=== PATIENT | male | born 1980 | race American Indian/Alaskan Native ===

== ENCOUNTER 2018-07-06 21:06 | Emergency (ER) | payer MEDICAID ==
[2018-07-06] MEDS ORDERED: GEODON PO SCH (22:00)
--- NOTE | 2018-07-07 11:08 | Emergency Department Report ---
Nicolette Doc - Documentation Documentation: Mr. Fields is a 37-year-old gentleman with history of paranoid schizophrenia. My colleague Dr. Candelaria evaluated Mr. Fields yesterday 07/06/2018. Due to symptoms of acute psychosis, Mr. Fields was placed on involuntary hold 1013 with appropriate precautions. Complete documentation can be found using [id number] Name: Gomez Layton. I have reviewed Dr. Candelaria H&P and labs upon presenation. I have completed 1013 form, I determined Mr. Fields is medically clear for psychiatric care according to presentation and workup. I did evaluate Mr. Fields. He currently does not have a medical condition which requires treatment and evaluation. CBC chemistry urine tox screen UA all within normal limits. Mr. Fields takes Risperdal 2 mg twice a day.
[2018-07-07 11:54] LABS: Basophils # (Auto) 0.1 K/mm3 (0.0-0.1); Basophils % (Auto) 2.1 % (0.0-1.8); Eosinophils # (Auto) 0.2 K/mm3 (0.0-0.4); Eosinophils % (Auto) 4.2 % (0.0-4.3); Hematocrit 44.6 % (35.5-45.6); Lymphocytes # (Auto) 1.4 K/mm3 (1.2-5.4); Lymphocytes % (Auto) 38.7 % (13.4-35.0); Mean Corpuscular HGB Conc 34 % (32-34); Mean Corpuscular Volume 90 fl (84-94); Monocytes # (Auto) 0.3 K/mm3 (0.0-0.8); Monocytes % (Auto) 7.7 % (0.0-7.3); Platelet Count 217 K/mm3 (140-440); Red Blood Count 4.93 M/mm3 (3.65-5.03); Red Cell Distribution Width 13.7 % (13.2-15.2)
[2018-07-07 12:07] LABS: Alanine Aminotransferase 16 units/L (7-56); Albumin 3.9 g/dL (3.9-5); BUN/Creatinine Ratio 7; Blood Urea Nitrogen 7 mg/dL (9-20); Calcium 9.2 mg/dL (8.4-10.2); Hemolysis Index 7
--- NOTE | 2018-07-07 13:42 | Consultation ---
History of Present Illness - Reason for Consult Consult date: 07/07/18 Reason for consult: Mental Health Evaluation Requesting physician: JAMILAH KIM - Chief Complaint Chief complaint: "I have triplets" - History of Present Psychiatric Illness 37 year-old AA male who presented to the ER for bizarre behavior. Initially the patient was answering to another name (Gomez Fields) when I first met him. The patient real name is Kodi Fields. Today the patient is calm, but tangent and disorganized during the assessment. He was asked several times why does he use different names and his answers were not logical. He started talking about having "triplets" or being a "triplet," something totally irrelevant to our conversation. He denies making any statements about wanting to set himself on fire when asked per the record. He denies SI/HI's and AVH's. At this time the patient is a poor historian. Medications and Allergies Allergies Allergy/AdvReac Type Severity Reaction Status Date / Time Penicillins Allergy Rash Verified 01/03/16 16:27 Home Medications Medication Instructions Recorded Confirmed Last Taken Type Benztropine [Cogentin] 1 mg PO BID #60 tablet 01/03/16 07/06/18 Unknown Rx Haloperidol [Haldol] 5 mg PO QHS #30 tablet 01/03/16 07/06/18 Unknown Rx risperiDONE [RisperDAL] 6 mg PO QHS #60 tablet 01/03/16 07/06/18 Unknown Rx traZODone [Desyrel] 100 mg PO QHS #30 tablet 01/03/16 07/06/18 Unknown Rx Active Meds: Active Medications Risperidone (Risperdal) 2 mg PO BID [facility] Past psychiatric history - Past Medical History Past Medical History: No medical history Past Surgical History: No surgical history - past Psychiatric treatment and history psychiatric treatment history: Several inpatient psy settings. Denies a fam psy hx. - Social History Social history: other ([facility]) Mental Status Exam - Vital signs Last Vital Signs Temp 98.2 F 07/07/18 07:58 Pulse 78 07/07/18 07:58 Resp 18 07/07/18 08:08 BP 100/71 07/07/18 07:58 Pulse Ox 100 07/07/18 07:58 - Exam Narrative exam: MSE: Appearance: calm, cooperative Behavior: regular eye contact Speech: regular rate with and tone Mood: "okay" Affect: constricted Thought Process:disorganized, loose associations Thought Content: denies SI/HI's and AVH's Motor Activity: sitting up in bed Cognition: A/O x3 Insight:poor Judgment: poor Results Result Diagrams: 07/07/18 11:32 07/07/18 11:32 Abnormal lab results 07/07/18 07/07/18 07/07/18 Range/Units 11:32 11:32 11:32 WBC 3.7 L (4.5-11.0) K/mm3 Lymph % (Auto) 38.7 H (13.4-35.0) % Reagan % (Auto) 7.7 H (0.0-7.3) % Baso % (Auto) 2.1 H (0.0-1.8) % Seg Neutrophils # 1.7 L (1.8-7.7) K/mm3 BUN 7 L (9-20) mg/dL Salicylates < 0.3 L (2.8-20.0) mg/dL Acetaminophen (10.0-30.0) ug/mL 07/07/18 Range/Units 11:32 WBC (4.5-11.0) K/mm3 Lymph % (Auto) (13.4-35.0) % Reagan % (Auto) (0.0-7.3) % Baso % (Auto) (0.0-1.8) % Seg Neutrophils # (1.8-7.7) K/mm3 BUN (9-20) mg/dL Salicylates (2.8-20.0) mg/dL Acetaminophen < 5.0 L (10.0-30.0) ug/mL All other labs normal. Assessment and Plan Assessment and plan: Impression: Unspecified Psychosis. Today the patient is calm, but tangent and disorganized during the assessment. DDx: R/O Bipolar DO with psychosis, Schizophrenia Recommendation/Plan: Continue 1013 and start Risperdal 1 mg PO HS for psychosis. Discussed possible metabolic side effects of Risperdal with the patient. Dispo: The patient will be referred to inpatient psy services. Will staff with Dr Cloud.
[2018-07-07 20:17] LABS: Bilirubin,Urine NEG (Negative); Blood,Urine NEG (Negative); Color,Urine Yellow (Yellow); Mucus,Urine FEW /HPF; Protein,Urine <15 mg/dL mg/dL (Negative)
[2018-07-07 20:28] LABS: Amphetamine Screen,Urine PRESUMPTIVE NEGATIVE; Benzodiazepines Screen,Urine PRESUMPTIVE NEGATIVE; Methadone Screen,Urine PRESUMPTIVE NEGATIVE; Opiate Screen,Urine PRESUMPTIVE NEGATIVE
[2018-07-07 20:43] LABS: Cannabinoid Screen,Urine PRESUMPTIVE POSITIVE; Cocaine Screen,Urine PRESUMPTIVE POSITIVE
[2018-07-07] MEDS ORDERED: RisperDAL PO SCH ×2 (22:00)
[2018-07-09 11:35] VITALS: BP 104/66
== END 2018-07-08 07:14 ==
LOC: ED 21:06 → EDBD 21:06 → ED 07-08 07:14
DX: F29 Unspecified psychosis not due to a substance or known physiological condition (principal)
CPT/HCPCS: 36415; 80053; 80307; 81001; 85025; 99285; G0480; 80320; 82550; 82553; 83735